=== PATIENT | female | born 1975 | race Caucasian/White ===

== ENCOUNTER 2021-08-17 12:13 | Inpatient (IN) | payer OTHER ==
[~2021-08-17] VITALS: Ht 167.6 cm; Wt 74.8 kg
[2021-08-17] VITALS (346 sets, daily range): BP systolic 130; BP diastolic 58; PULSE 100; TEMP 97.9; O2SAT 88–99
[~2021-08-17 12:13] MED LIST: ALPRAZOLAM0.5 MG PO; CETIRIZINE; HUMULOG; KLONOPIN0.5 MG PO; LANTUS100 U/ML; PRINIVIL10 MG PO; PRISTIQ100 MG PO; REGLAN5 MG/ML IV; SPRINTEC 35 MCG1 TAB PO; TOPAMAX100 MG PO; resperidone
[2021-08-17 13:05] LABS: BASO % 0.2 % (0.0-2.0); GRAN # 7.2 K/mm3 (1.4-6.5); GRAN % 87.6 % (42.2-75.2); HEMOGLOBIN 13.6 g/dl (12.5-16.0); LYMPH # 0.7 K/mm3 (1.2-3.4); LYMPH % 8.6 % (20.0-51.0); MEAN CELL VOLUME 93 fl (80.0-100.0); MEAN CORPUSCULAR HEMOGLOBIN 32 pg (27-31); MEAN CORPUSCULAR HGB CONC 35 g/dl (33.0-37.0); MEAN PLATELET VOLUME 10.8 fl (7.4-10.4); MONO # 0.3 K/mm3 (0.1-0.6); MONO % 3.5 % (1.7-9.3); PLATELET COUNT 322 K/mm3 (130-400); RED BLOOD COUNT 4.21 M/mm3 (4.10-5.30); REDCELL DISTRIBUTION WIDTH-CV 11.4 % (11.5-14.5)
[2021-08-17 13:47] LABS: ALBUMIN 3.3 gm/dL (3.5-5.0); BILIRUBIN,TOTAL 0.2 mg/dL (0.2-1.2); C-REACTIVE PROTEIN 1.74 mg/dL (0.00-0.50); CREATININE, serum 0.71 mg/dL (0.57-1.11); POTASSIUM 4.9 mmol/L (3.5-4.5); TOTAL PROTEIN 7.5 gm/dL (6.2-8.1)
[2021-08-17 14:06] LABS: PROLACTIN 5.9 ng/mL (5.18-26.53)
[2021-08-17] MEDS ORDERED: NAPROSYN500 MG PO (14:07)
[2021-08-17] MEDS ORDERED: ROXICODONE 55 MG/TAB PO (14:07)
[2021-08-17] MEDS ORDERED: LIPITOR 80MG80 MG PO (14:08)
[2021-08-17] MEDS ORDERED: BUSPIRONE HCL7.5 MG PO (14:08)
[2021-08-17] MEDS ORDERED: HCTZ 25MG TAB25 MG PO (14:08)
[2021-08-17] MEDS ORDERED: EFFEXOR-XR150 MG PO (14:08)
--- NOTE | 2021-08-17 16:03 | NUR ---
PT ARRIVES TO ICU7 VIA BED FROM ED. PT'S BOYFRIEND WITH PT. PT UNABLE TO HELP WITH TRANSFER TO BED. PT NON-VERBAL AT THIS TIME AND IS UNABLE TO FOLLOW COMMANDS. EYES OPEN SPONTANEOUSLY. 20G PIV TO RIGHT AC. DR. CHENEY ALSO ARRIVES AT THIS TIME TO ASSESS PT.
--- NOTE | 2021-08-17 16:44 | NUR ---
Vancomycin Initial Dosing Pharmacy Note Ordering provider: Sergey Apodaca MD Indication/duration: POSSIBLE MENINGITIS LABS: WBC 8.2, SCR 0.71, CRCL >90 Recommendation: VANCOMYCIN ~17MG/KG Maintenance dose: 1.5 grams every 12 hours Trough goal: 15-20 ug/mL. TROUGH CLINICALLY INDICATED
[2021-08-17 16:55] LABS: COLLECTION METHOD CLEAN CATCH
[2021-08-17 17:03] LABS: MUCOUS Present (NOT PRESENT); PH 8 (5-8); URINE APPEARANCE Clear (CLEAR/HAZY); URINE BACTERIA None Seen /hpf (NONE SEEN); URINE BILIRUBIN Negative (NEGATIVE); URINE BLOOD Negative (NEGATIVE); URINE COLOR Yellow (YELLOW); URINE GLUCOSE 3+ (NEGATIVE); URINE KETONE Negative (NEGATIVE); URINE LEUKOCYTE ESTERASE Negative (NEGATIVE); URINE NITRATE Negative (NEGATIVE); URINE PROTEIN(semi-quant) 1+ (NEGATIVE); URINE RBC 0-2 /hpf (0-2); URINE UROBILINOGEN Negative (NEGATIVE)
[2021-08-17 17:11] LABS: TRICYCLIC ANTIDEPRESS URINE NEGATIVE
[2021-08-17] MEDS ORDERED: ASPIRIN 81M81 MG/TA2 PO (17:45)
[2021-08-17] MEDS ORDERED: SINGULAIR 110 MG/TAB PO (17:49)
[2021-08-17] MEDS ORDERED: ZETIA 10MG TAB10 MG PO (17:49)
[2021-08-17] MEDS ORDERED: COREG12.5 MG PO (17:50)
[2021-08-17] MEDS ORDERED: NORVASC 10MG10 MG PO (17:51)
[2021-08-17] MEDS ORDERED: COZAAR100 MG PO (17:51)
[2021-08-17] MEDS ORDERED: SEMGLEE (Y100 UNIT/2 SQ (17:53)
[2021-08-17] MEDS ORDERED: EPITOL PO (17:53)
[2021-08-17] MEDS ORDERED: NORCO 325 MG-51 TAB PO (17:54)
[2021-08-17 21:17] LABS: TOTAL PROTEIN,CSF 34 mg/dL (15-45)
--- NOTE | 2021-08-17 22:18 | NUR ---
2010 - LP PERFORMED AT THIS TIME PER MELVIN LAMAR CRNA. VSS, PT KEVEN PROCEDURE WELL. PT POSITIONED SUPINE. NO COMPLICATIONS NOTED. WILL CONTINUE TO MONITOR PT.
[2021-08-17 22:25] LABS: CSF APPEARANCE CLEAR; CSF COLOR COLORLESS
[2021-08-17 22:26] LABS: CSF RBC 7 /mm3 (0-0)
[2021-08-17 22:28] LABS: CSF MONONUCLEAR 100 % (70-100); CSF POLYMORPHONUCLEAR 0 % (0-6)
--- NOTE | 2021-08-17 23:18 | NUR ---
NOTIFIED JOSHUA KC OF PT NEEING VTE PROPHYLAXIS, ORDER FOR SCDS OBTAINED. ALSO NOTIFIED HER OF PT'S SPO2 SAYING 89-90% ON RA. ORDERS GIVEN TO PLACE PT ON 2L NC
[2021-08-18] VITALS (1120 sets, daily range): BP systolic 135–156; BP diastolic 77–89; PULSE 77–92; TEMP 97.8–99.1; O2SAT 80–100
--- NOTE | 2021-08-18 04:15 | NUR ---
RECEIVED REPORT FROM LEONIDES YANEZ.
[2021-08-18 06:36] LABS: BASO % 0.3 % (0.0-2.0); EOS % 0.1 % (0.0-4.0); GRAN # 7.5 K/mm3 (1.4-6.5); GRAN % 76.3 % (42.2-75.2); HEMATOCRIT 38.3 % (37.0-47.0); HEMOGLOBIN 12.8 g/dl (12.5-16.0); LYMPH # 1.7 K/mm3 (1.2-3.4); LYMPH % 16.7 % (20.0-51.0); MEAN CELL VOLUME 96 fl (80.0-100.0); MEAN CORPUSCULAR HEMOGLOBIN 32 pg (27-31); MEAN CORPUSCULAR HGB CONC 33 g/dl (33.0-37.0); MEAN PLATELET VOLUME 11.3 fl (7.4-10.4); MONO # 0.6 K/mm3 (0.1-0.6); MONO % 6.1 % (1.7-9.3); PLATELET COUNT 260 K/mm3 (130-400); RED BLOOD COUNT 4.01 M/mm3 (4.10-5.30); REDCELL DISTRIBUTION WIDTH-CV 11.9 % (11.5-14.5)
[2021-08-18 06:52] LABS: ALBUMIN 2.8 gm/dL (3.5-5.0); CALCIUM 8.3 mg/dL (8.4-10.2); CREATININE, serum 0.76 mg/dL (0.57-1.11); MAGNESIUM 1.7 mg/dL (1.6-2.6); PHOSPHOROUS 2.9 mg/dL (2.3-4.7); POTASSIUM 4.4 mmol/L (3.5-4.5)
--- NOTE | 2021-08-18 07:00 | NUR ---
Report received from LEONIDES Rosa. 20G PIV to R SCARLET. Multiple attempts were made to start a second PIV site overnight with no success. This nurse will speak with hospitalist and AIVs for PICC evaluation. FC to dependent drainage. Pt currently having EEG done.
--- NOTE | 2021-08-18 09:19 | NUR ---
Pt is becoming more alert. Was able to answer yes/no questions. Appears to be having some aphasia at this time.
--- NOTE | 2021-08-18 09:47 | NUR ---
RON and SW student met with the patient and her boyfriend, Real Otto (ph#[phone]), to discuss discharge plan. The patient was sleeping and has been somnolent. Real states that the patient lives in [place] with a roommate, Basia, and Basia's son (Vinny). Real lives in [place] and the patient was visiting him yesterday. He reports that she is independent with ADLs and does not have any DME. He states that with her arm fracture, he did buy her a showerchair and grabbar for the shower. The patient's PCP is Dr. Jake Burroughs. Real was unsure if the patient has a DPOA-HC. He states that she is not and that she has one child: Raymond. He is 13-years old and lives with his father in [place]. The patient's father is alive, but Real is unsure his name. SW attempted to ask the patient some questions, but she did not answer. RON staffed with the patient's RN. The RN has a number for the patient's sister, Matilde Rosario (ph#[phone]). RON contacted Carmela. Carmela clarified the above. Carmela states that the patient does not have custody of her son. She states their father's name is Woodrow Rosario (ph#[phone]). Carmela lives with Woodrow. RON informed Carmela how Woodrow is the patient's legal next of kin. Carmela verbalized understanding. Carmela would be interested in the patient completing DPOA-HC paperwork while here, when she can. SW to continue to follow. *Discharge plan: Unknown at this time*
[2021-08-19] VITALS (1095 sets, daily range): BP systolic 122–172; BP diastolic 69–96; PULSE 60–85; TEMP 97.4–98.6; O2SAT 73–100
[2021-08-19 06:05] LABS: BASO % 0.6 % (0.0-2.0); EOS % 0.3 % (0.0-4.0); GRAN # 3.2 K/mm3 (1.4-6.5); GRAN % 44.3 % (42.2-75.2); HEMOGLOBIN 12.2 g/dl (12.5-16.0); LYMPH # 3.2 K/mm3 (1.2-3.4); MEAN CELL VOLUME 97 fl (80.0-100.0); MEAN CORPUSCULAR HEMOGLOBIN 32 pg (27-31); MEAN CORPUSCULAR HGB CONC 33 g/dl (33.0-37.0); MONO # 0.7 K/mm3 (0.1-0.6); MONO % 9.5 % (1.7-9.3); PLATELET COUNT 255 K/mm3 (130-400); RED BLOOD COUNT 3.81 M/mm3 (4.10-5.30)
[2021-08-19 06:35] LABS: ALBUMIN 2.8 gm/dL (3.5-5.0); CALCIUM 8.7 mg/dL (8.4-10.2); CREATININE, serum 0.74 mg/dL (0.57-1.11); PHOSPHOROUS 3.3 mg/dL (2.3-4.7)
--- NOTE | 2021-08-19 11:50 | NUR ---
PATIENT TO MRI AND CAME BACK AT 1230 WENT BY KACYW CHAIR WITH NO ASSISTANCE
--- NOTE | 2021-08-19 12:53 | NUR ---
PATIENT TO OR BY STRETCHER AT 0647
--- NOTE | 2021-08-19 15:34 | NUR ---
PATIENT RETURN FROM OR, RECIEVED NURSING REPORT FROM ANESTHIA, PATIENT A AND O X4
[2021-08-19 16:58] LABS: HSV 2 DNA PCR QUAL Not Detected (())
[2021-08-20] VITALS (807 sets, daily range): BP systolic 112–161; BP diastolic 63–83; PULSE 57–67; TEMP 97.5–99; O2SAT 89–100
[2021-08-20 05:57] LABS: BASO % 0.2 % (0.0-2.0); GRAN # 8.8 K/mm3 (1.4-6.5); GRAN % 75.6 % (42.2-75.2); HEMATOCRIT 42.1 % (37.0-47.0); LYMPH # 2.1 K/mm3 (1.2-3.4); LYMPH % 18.4 % (20.0-51.0); MEAN CELL VOLUME 94 fl (80.0-100.0); MEAN CORPUSCULAR HEMOGLOBIN 32 pg (27-31); MEAN CORPUSCULAR HGB CONC 34 g/dl (33.0-37.0); MEAN PLATELET VOLUME 11.1 fl (7.4-10.4); MONO # 0.6 K/mm3 (0.1-0.6); MONO % 5.5 % (1.7-9.3); PLATELET COUNT 277 K/mm3 (130-400); REDCELL DISTRIBUTION WIDTH-CV 11.4 % (11.5-14.5)
[2021-08-20 06:00] LABS: HEMOGLOBIN 14.4 g/dl (12.5-16.0)
[2021-08-20 06:04] LABS: ALBUMIN 3.3 gm/dL (3.5-5.0); CALCIUM 9.3 mg/dL (8.4-10.2); CREATININE, serum 0.8 mg/dL (0.57-1.11); MAGNESIUM 2.1 mg/dL (1.6-2.6); PHOSPHOROUS 4.1 mg/dL (2.3-4.7); POTASSIUM 4.8 mmol/L (3.5-4.5)
--- NOTE | 2021-08-20 09:14 | NUR ---
The patient is alert and oriented now. RON met with the patient alone to follow up and review discharge plan. She states that she is doing well. She confirms the information that was provided to RON from her sister and boyfriend. RON inquired about a DPOA-HC. The patient states that she does not have a DPOA-HC and she is not interested in completing one at this time. RON informed her how her father is her legal next of kin. The patient verbalized understanding. The patient states that she plans on returning back home with her roommate in [place] upon discharge. She states that her arm fracture was from falling out of the bed and that her boyfriend is very supportive. SW to continue to follow.
--- NOTE | 2021-08-20 10:00 | NUR ---
CODE CALLED ON PT WILL IN NUC MED. PT BECAME LETHARGIC AND APNIC. BEDSIDE AT 0918. PT'S BP IN THE 200'S. 09 PT BAGGED BT CODE TEAM AND BROUGHT BACK TO ICU6. BEDSIDE. BG 185. 0936 MEDS GIVEN FOR INTUBATION. 0939 PT INTUBATED BY WITH A 7.5ET AT 20 AT THE TEETH. 0945 OG TUBE PLACED AT 65CM AT THE TEETH. 0949 SEDATION STARTED 0951 RESTRAINTS APPLIED. BEDSIDE. XRAY COMPLETED.
--- NOTE | 2021-08-20 14:02 | NUR ---
PT notified RON that the patient would benefit from some home health. The patient's insurance is [employer]. RON met with the patient and her boyfriend to review discharge plan and to discuss home health. RON informed her how the home health agency would have to check the patient's benefits to find out if she has home health benefits and if there would be any out-of- pocket costs. The patient states that she plans on staying with her boyfriend in [place] upon discharge. She states that she is not interested in home health. RON discussed outpatient PT. The first stated she was not interested. The patient apologized and said she just woke up and would need some time. She would like some time to think about if she would want to pursue with outpatient PT or home health or not. *Discharge plan: home with boyfriend and possibly outpatient PT or home health*
--- NOTE | 2021-08-20 14:06 | NUR ---
1340-REPORT CALLED TO SADIA COYLE. ALL QUESTIONS ANSWERED. 1400-PT WHEELED UP TO 328 BY CAMILLE COYLE.
--- NOTE | 2021-08-20 14:15 | NUR ---
Patient to room 328 from the ICU by wheelchair. Nurse oriented the patient to location, room and call light. Family at the bedside. A&Ox3. IV CDI. Left arm in sling. Call light within reach
--- NOTE | 2021-08-20 17:48 | NUR ---
Patient sitting up in bed with family at the bedside. LF arm in sling, CMS WNL. A&Ox3. VSS. IV CDI. Reporting pain in left arm, pain medication given as needed. Right hand swollen and weak grasp. Call light within reach
--- NOTE | 2021-08-20 20:00 | NUR ---
Pt. sitting up in bed. Pt. is A&OX3, assessment complete. INT To Rt ac and rt. hand patent. Lt. arm in splint dressing and sling. Pt. reports pain to lt arm at a 8 on pain scale. Will give pain meds per orders. Pt. denies further needs, call light within reach.
[2021-08-21 04:27] VITALS: BP 164/72; PULSE 55; TEMP 97.6
[2021-08-21 08:00] VITALS: BP 158/86; PULSE 66; TEMP 98
[2021-08-21 09:15] LABS: BASO % 0.3 % (0.0-2.0); EOS % 0.1 % (0.0-4.0); GRAN # 4.4 K/mm3 (1.4-6.5); GRAN % 57.6 % (42.2-75.2); LYMPH # 2.8 K/mm3 (1.2-3.4); MEAN CELL VOLUME 96 fl (80.0-100.0); MEAN CORPUSCULAR HGB CONC 33 g/dl (33.0-37.0); MEAN PLATELET VOLUME 11.3 fl (7.4-10.4); MONO # 0.5 K/mm3 (0.1-0.6); MONO % 5.9 % (1.7-9.3); PLATELET COUNT 279 K/mm3 (130-400); RED BLOOD COUNT 3.84 M/mm3 (4.10-5.30); REDCELL DISTRIBUTION WIDTH-CV 11.6 % (11.5-14.5)
[2021-08-21 09:24] LABS: HEMATOCRIT 36.7 % (37.0-47.0); MEAN CORPUSCULAR HEMOGLOBIN 32 pg (27-31)
[2021-08-21 09:26] LABS: HEMOGLOBIN 12.2 g/dl (12.5-16.0)
--- NOTE | 2021-08-21 09:36 | NUR ---
Pt assessment complete. Pt just finished with PT and her walk. Pt currently reports pain to LUE 01/15, PRN pain medication administered. Breathing even and unlabored on RA. No SOB reported. Denies any N/V. LUE in sling. No needs at this time. Call light within reach.
[2021-08-21 09:38] LABS: CALCIUM 8.9 mg/dL (8.4-10.2); CREATININE, serum 0.7 mg/dL (0.57-1.11); MAGNESIUM 1.6 mg/dL (1.6-2.6); PHOSPHOROUS 3.7 mg/dL (2.3-4.7); POTASSIUM 3.7 mmol/L (3.5-4.5)
[2021-08-21 11:33] VITALS: BP 133/63; PULSE 59; TEMP 97.6
--- NOTE | 2021-08-21 11:40 | NUR ---
Discharge instructions and paperwork reviewed with patient. All questions answered at this time. IV's to Rwrist and RAC dc'd catheters intact.
--- NOTE | 2021-08-21 12:06 | NUR ---
Pt wheeled out of facility at this time.
--- NOTE | 2021-08-21 15:21 | NUR ---
SW informed that patient would be discharging on this day and would need assistance with setting up services. SW met with patient and she provided that she would like information sent to the following facilities of choice: [facility], [facility], and [facility]. Patient states that she would be staying with her boyfriend in [place] not at her listed home in [place]. SW faxed DC documentation to all three facilities, but provided numbers to each facility to patient to ensure that a call would be placed to them by her to provided that services would be at a different location and not the one listed in file. Patient stated that she would be contacting each facility on Monday. SW called each facility to inform of referral sent. Nothing further.
--- NOTE | 2021-08-23 10:23 | NUR ---
Linnea, at [facility], reports that they are unable to accept the patient.
== END 2021-08-21 12:06 | disposition home health service (06) | DRG 981 ==
LOC: COL.ER 12:13 → ICU 14:03 → SURG 08-20 14:06
PROVIDERS: Family Medicine; Orthopaedic Surgery; ADMIT Internal Medicine
PROC: 0PSJ04Z Reposition Left Radius with Internal Fixation Device, Open Approach (ICD-10-PCS; principal; 2021-08-19 13:00)
DX: E10.649 Type 1 diabetes mellitus with hypoglycemia without coma (principal); G93.41 Metabolic encephalopathy; S52.572A Other intraarticular fracture of lower end of left radius, initial encounter for closed fracture; G40.909 Epilepsy, unspecified, not intractable, without status epilepticus; I10 Essential (primary) hypertension; J45.909 Unspecified asthma, uncomplicated; K21.9 Gastro-esophageal reflux disease without esophagitis; E78.5 Hyperlipidemia, unspecified; F32.A Depression, unspecified; K59.00 Constipation, unspecified; Z86.73 Personal history of transient ischemic attack (TIA), and cerebral infarction without residual deficits
CPT/HCPCS: 99223-AI; 99232-AI; 99233-AI; 99239; A9575; C1713; J0133; J0690; J0696; J1815; J2250; J2310; J2704; J3010; J3370; J7050; J7070; J7120; J7121